=== PATIENT | female | born 1980 | race Hispanic/Latino ===

== ENCOUNTER 2019-01-08 01:26 | Inpatient (IN) | payer BC, OTHER ==
[~2019-01-08] VITALS: Ht 162.6 cm; Wt 87.4 kg
[2019-01-08] MEDS ORDERED: DEXAMETHASONE SOD PHOSPHATE 10MG/ML 1ML VIAL ONE (01:32)
[2019-01-08] MEDS ORDERED: METHYLPREDNISOLONE SOD SUCC 125MG/2ML VIAL ONE (01:32)
[2019-01-08] MEDS ORDERED: EPINEPHRINE 1 MG/ML AMPULE ONE (01:34)
[2019-01-08] MEDS ORDERED: SODIUM CHLORIDE 0.9% 1000ML 1,000 ML IV ONE (01:35)
[2019-01-08] MEDS ORDERED: IPRATROPIUM/ALBUTEROL SULFATE 3 ML SOLUTION IH ONE ×2 (01:35→05:11)
[2019-01-08 01:48] LABS: BASOPHILS % (AUTO) 0.8 % (0.0-5.0); EOSINOPHILS % (AUTO) 4.7 % (0.0-8.0); HEMATOCRIT 41.9 % (36-48); LYMPHOCYTES % (AUTO) 29.2 % (21.0-51.0); MEAN CORPUSCULAR HEMOGLOBIN 28.6 pg (27.0-33.0); MEAN CORPUSCULAR HGB CONC 34.1 g/dL (32.0-36.0); MEAN CORPUSCULAR VOLUME 83.7 fL (79-99); MONOCYTES % (AUTO) 6.9 % (3.0-13.0); NEUTROPHILS % (AUTO) 58.4 % (40.0-77.0); NUCLEATED RED BLOOD CELLS 0.1 % (0.0-0.19); PLATELET COUNT (AUTO) 331 K/uL (130-400); RED BLOOD CELL COUNT(AUTO) 5.01 MIL/uL (4.00-5.50); RED CELL DISTRIBUTION WIDTH 13.7 % (11.0-15.5); WHITE BLOOD COUNT (AUTO) 15.5 K/uL (4.8-10.8)
[2019-01-08 02:00] LABS: CREATININE 0.9 mg/dL (0.5-1.5); POTASSIUM 3.2 mmol/L (3.5-5.1)
[2019-01-08 02:05] LABS: ALBUMIN 3.9 g/dL (3.5-5.0); BILIRUBIN,TOTAL 0.2 mg/dL (0.2-1.0)
[2019-01-08] MEDS ORDERED: RACEPINEPHRINE HCL 2.25% 0.5 ML NEB SOLN ONE (02:05)
[2019-01-08] MEDS ORDERED: DiphenhydrAMINE HCL 50 MG/ML VIAL ONE (02:51)
[2019-01-08] MEDS ORDERED: CEFTRIAXONE SODIUM 1 GM ONE (02:52)
[2019-01-08] MEDS ORDERED: FAMOTIDINE/PF 20 MG/2 ML VIAL IV ONE (02:52)
[2019-01-08] MEDS ORDERED: IOHEXOL-350 50ML VIAL IV ONE (03:00)
[2019-01-08] MEDS: CEFTRIAXONE SODIUM 1 GM IV SCH (03:01)
[2019-01-08] MEDS: FAMOTIDINE/PF 20 MG/2 ML VIAL IV SCH ×2 (03:01→21:42)
[2019-01-08] MEDS ORDERED: ACETAMINOPHEN 325 MG TAB PO PRN ×2 (05:15)
[2019-01-08] MEDS ORDERED: ONDANSETRON HCL 4 MG/2 ML VIAL IV PRN (05:15)
[2019-01-08] MEDS ORDERED: GUAIFENESIN-CODEINE 5 ML SYRUP PO PRN (05:15)
[2019-01-08] MEDS ORDERED: MORPHINE SULFATE 4 MG/1ML SYG IV PRN (05:15)
[2019-01-08] MEDS ORDERED: METHYLPREDNISOLONE SOD SUCC 125MG/2ML VIAL IV SCH (05:15)
[2019-01-08] MEDS ORDERED: MORPHINE SULFATE 2 MG/ML 1ML SYG IV PRN (05:15)
[2019-01-08] MEDS: IPRATROPIUM/ALBUTEROL SULFATE 3 ML SOLUTION IH SCH ×4 (06:00→23:20)
[2019-01-08 07:30] VITALS: BP 110/68
[2019-01-08 11:00] VITALS: BP 102/80
[2019-01-08] MEDS ORDERED: POTASSIUM CHLORIDE 10% ELIXIR 20 MEQ/15 ML UDCUP PO PRN (11:00)
[2019-01-08] MEDS ORDERED: LIDOCAINE HCL-MPF 1% 2ML VIAL IVP PRN (11:00)
[2019-01-08] MEDS ORDERED: POTASSIUM CHLORIDE 20MEQ/100ML 100 ML IV PRN (11:00)
[2019-01-08] MEDS: SODIUM CHLORIDE 0.9% 1000ML 1,000 ML IV SCH ×2 (11:46→21:42)
[2019-01-08] MEDS: ENOXAPARIN SODIUM 30 MG/0.3 ML SQ SCH ×2 (13:47→21:43)
[2019-01-08] MEDS: METHYLPREDNISOLONE SOD SUCC 125MG/2ML VIAL IV SCH ×2 (13:47→21:42)
[2019-01-08 16:00] VITALS: BP 107/68
--- NOTE | 2019-01-08 16:41 | NUR ---
INITIAL: Met w pt this afternoon to discuss dcp. Pt mentions that she is visiting from [place]. Prior to admission was living w spouse and 3children. She is independent w ambulation and ADLs. She does own a nebulizer and uses her inhalers. Pt states that she feels safe and comfortable to [place]. Will continue to follow and wait for Md recommendations. Addendum: 01/08/19 at 1642 by DANA REYES CM Amended: Links added.
[2019-01-08] MEDS: POTASSIUM CHLORIDE 20 MEQ ERTAB PO PRN ×2 (18:44→23:27)
[2019-01-08 20:00] VITALS: BP 118/70
[2019-01-08] MEDS ORDERED: SODIUM CHLORIDE 3% FOR INHALATION 4 ML/AMP VIAL.NEB IH ONE (21:38)
[2019-01-08] MEDS: MONTELUKAST SODIUM 10 MG TAB PO SCH (21:43)
[2019-01-08] MEDS ORDERED: BUDE10.2 IH (23:33)
[2019-01-08] MEDS ORDERED: ALBU8.5H8 IH (23:33)
[2019-01-08] MEDS ORDERED: SPIRIVA IH (23:33)
[2019-01-09] VITALS: BP 113/57
[2019-01-09 03:41] LABS: ABG HCO3 17.8 mmol/L (21.0-28.0); ABG OXYGEN SATURATION 97.2 % (95.0-99.0); ABG PCO2 31 mmHg (32-45)
[2019-01-09 03:55] VITALS: BP 119/68
[2019-01-09] MEDS: CEFTRIAXONE SODIUM 1 GM IV SCH (05:30)
[2019-01-09] MEDS: METHYLPREDNISOLONE SOD SUCC 125MG/2ML VIAL IV SCH ×4 (05:31→23:38)
[2019-01-09] MEDS: SODIUM CHLORIDE 0.9% 1000ML 1,000 ML IV SCH (05:31)
[2019-01-09] MEDS: IPRATROPIUM/ALBUTEROL SULFATE 3 ML SOLUTION IH SCH ×4 (06:32→23:34)
[2019-01-09 07:12] LABS: BASOPHILS % (AUTO) 0.2 % (0.0-5.0); HEMATOCRIT 37.8 % (36-48); LYMPHOCYTES % (AUTO) 14.5 % (21.0-51.0); MEAN CORPUSCULAR HEMOGLOBIN 27.8 pg (27.0-33.0); MEAN CORPUSCULAR HGB CONC 32.5 g/dL (32.0-36.0); MEAN CORPUSCULAR VOLUME 85.5 fL (79-99); MONOCYTES % (AUTO) 3.5 % (3.0-13.0); NEUTROPHILS % (AUTO) 81.8 % (40.0-77.0); PLATELET COUNT (AUTO) 317 K/uL (130-400); RED BLOOD CELL COUNT(AUTO) 4.42 MIL/uL (4.00-5.50); RED CELL DISTRIBUTION WIDTH 14.2 % (11.0-15.5); WHITE BLOOD COUNT (AUTO) 18.6 K/uL (4.8-10.8)
[2019-01-09 07:21] LABS: CREATININE 0.7 mg/dL (0.5-1.5); POTASSIUM 3.7 mmol/L (3.5-5.1)
[2019-01-09] MEDS: FAMOTIDINE/PF 20 MG/2 ML VIAL IV SCH ×2 (08:29→20:36)
[2019-01-09] MEDS: ENOXAPARIN SODIUM 30 MG/0.3 ML SQ SCH ×2 (08:30→20:37)
[2019-01-09] MEDS: CETIRIZINE HCL 5 MG TABLET PO SCH (08:31)
[2019-01-09 11:00] VITALS: BP 120/63
[2019-01-09 16:00] VITALS: BP 120/69
[2019-01-09] MEDS ORDERED: BUDESONIDE 0.5 MG/2 ML INH IH ONE (19:25)
[2019-01-09] MEDS: BUDESONIDE 0.5 MG/2 ML INH IH SCH (19:31)
[2019-01-09 19:55] VITALS: BP 114/60
[2019-01-09] MEDS: MONTELUKAST SODIUM 10 MG TAB PO SCH (20:37)
[2019-01-09 23:51] VITALS: BP 119/73
[2019-01-10 03:52] VITALS: BP 127/68
[2019-01-10] MEDS: CEFTRIAXONE SODIUM 1 GM IV SCH (05:28)
[2019-01-10] MEDS: METHYLPREDNISOLONE SOD SUCC 125MG/2ML VIAL IV SCH ×2 (05:28→11:29)
[2019-01-10] MEDS: IPRATROPIUM/ALBUTEROL SULFATE 3 ML SOLUTION IH SCH ×2 (06:18→11:05)
[2019-01-10] MEDS: BUDESONIDE 0.5 MG/2 ML INH IH SCH (06:19)
[2019-01-10 06:59] LABS: BASOPHILS % (AUTO) 0.2 % (0.0-5.0); HEMATOCRIT 38.3 % (36-48); LYMPHOCYTES % (AUTO) 13.4 % (21.0-51.0); MEAN CORPUSCULAR HEMOGLOBIN 27.6 pg (27.0-33.0); MEAN CORPUSCULAR HGB CONC 32.7 g/dL (32.0-36.0); MEAN CORPUSCULAR VOLUME 84.6 fL (79-99); MONOCYTES % (AUTO) 2.8 % (3.0-13.0); NEUTROPHILS % (AUTO) 83.6 % (40.0-77.0); PLATELET COUNT (AUTO) 344 K/uL (130-400); RED BLOOD CELL COUNT(AUTO) 4.53 MIL/uL (4.00-5.50); RED CELL DISTRIBUTION WIDTH 14.4 % (11.0-15.5); WHITE BLOOD COUNT (AUTO) 21.1 K/uL (4.8-10.8)
[2019-01-10 07:08] LABS: CREATININE 0.7 mg/dL (0.5-1.5); POTASSIUM 3.7 mmol/L (3.5-5.1)
[2019-01-10 08:06] VITALS: BP 115/68
[2019-01-10] MEDS: CETIRIZINE HCL 5 MG TABLET PO SCH (08:27)
[2019-01-10] MEDS: FAMOTIDINE/PF 20 MG/2 ML VIAL IV SCH (08:27)
[2019-01-10] MEDS: ENOXAPARIN SODIUM 30 MG/0.3 ML SQ SCH (08:28)
[2019-01-10 11:55] VITALS: BP 132/74
--- NOTE | 2019-01-10 12:54 | NUR ---
FOLLOW UP W PT RE AFTERCARE PT HAS [employer] IN [place], WHERE SHE LIVES; DX W ASTHMA 11 YEARS AGO- THIS L=PAST YEAR HAS ACCELERATED. STILL AUDIBLY WHEEZING WHILE CONVERSING, STATES SO MUCH BETTER CM TO FOLLOW, DC EXPECTED TODAY Addendum: 01/10/19 at 1256 by NINA VENEGAS RN CM Amended: Links added.
--- NOTE | 2019-01-10 16:35 | NUR ---
INSTRUCTIONS DISCHARGE INSTRUCTIONS GIVEN TO PATIENT AND SPOUSE USING TEACH BACK. SHE HAS BEEN CLEARED FOR DISCHARGE BY [facility]. NEW PRESCRIPTIONS WERE PLACED IN PACKET ALONG WITH ALL PRINTED INFORMATION AND MD INSTRUCTIONS. NO RESPIRATORY DISTRESS NOTED. IV REMOVED WITH TIP INTACT. DIRECT PRESSURE APPLIED UNTIL BLEEDING CONTROLLED THEN SITE COVERED WITH GAUZE AND SECURED WITH A BAND-AID. NO QUESTIONS OR CONCERNS VOICED.
== END 2019-01-10 16:46 | disposition home or self-care (01) | DRG 203 ==
LOC: EDH 01:26 → EDHIP 04:55 → 4AH 08:00
PROVIDERS: ADMIT Hospitalist; ATTEND Hospitalist
DX: J45.902 Unspecified asthma with status asthmaticus (principal); D72.829 Elevated white blood cell count, unspecified; E87.6 Hypokalemia; J02.9 Acute pharyngitis, unspecified
CPT/HCPCS: 36415; 36600; 70491; 71045; 80048; 80053; 82803; 84703; 85025; 87071; 87205; 93005; 94640; 94664; G0378; J0171; J0696; J1100; J1200; J1650; J2270; J2930; J3490; J7030; Q9967